=== PATIENT | male | born 1975 | race Caucasian/White ===

== ENCOUNTER 2018-11-20 17:49 | Emergency (ER) | payer SELFPAY ==
[~2018-11-20] VITALS: Ht 177.8 cm; Wt 68.0 kg
[2018-11-20] MEDS ORDERED: Keflex500 MG PO (20:13)
[2018-11-20] MEDS ORDERED: Bactrim Ds Tab1 EACH PO (20:13)
== END 2018-11-20 20:25 | disposition home or self-care (01) ==
LOC: ER 17:49
DX: L03.011 Cellulitis of right finger (principal); F17.200 Nicotine dependence, unspecified, uncomplicated
CPT/HCPCS: 10060; 73140; 99283-25; A9270